=== PATIENT | male | born 1955 | race Caucasian/White ===

== ENCOUNTER 2017-11-26 09:18 | Outpatient (CLI) | payer MEDICAID ==
[~2017-11-26 09:18] MED LIST: GUAI-934 PO; IPRA3AMP IH; METH4TAB81 PO; PRED10TA PO
== END 2017-11-26 23:59 | disposition home or self-care (01) ==
LOC: RT 09:18
DX: J44.9 Chronic obstructive pulmonary disease, unspecified (principal)
CPT/HCPCS: 94618

== ENCOUNTER → 2018-07-03 | Outpatient (CLI) | payer MEDICARE, MEDICAID ==
[~2018-07-03] MED LIST changes: -IPRA3AMP IH; +IPRA3AMP31 IH
[2018-07-03 09:42] LABS: BASOPHILS % (AUTO) 0.8 % (0-1); EOSINOPHILS % (AUTO) 0.7 % (0-6); LYMPHOCYTES # (AUTO) 1.4 X10'3 (1.1-4.8); LYMPHOCYTES % (AUTO) 22.9 % (21-51); MEAN CORPUSCULAR HEMOGLOBIN 29.6 PG (27.0-31.0); MEAN CORPUSCULAR HGB CONC 33.3 % (33.0-36.5); MEAN CORPUSCULAR VOLUME 89.1 FL (78-98); MONOCYTES # (AUTO) 0.6 X10'3 (0-0.9); MONOCYTES % (AUTO) 10.5 % (2-12); NEUTROPHILS # (AUTO) 4.1 X10'3 (1.8-7.7); NEUTROPHILS % (AUTO) 65.1 % (42-75); PLATELET COUNT 215 X10'3 (140-440); RED BLOOD COUNT 5.05 X10'6 (4.70-6.10); RED CELL DISTRIBUTION WIDTH 12.4 % (11.5-14.5); WHITE BLOOD COUNT 6.1 X10'3 (4.5-11.0)
[2018-07-03 10:00] LABS: ALANINE AMINOTRANSFERASE 43 U/L (12-78); ALBUMIN/GLOBULIN RATIO 1.2 (1.1-1.5); ALKALINE PHOSPHATASE 118 IU/L (46-116); ANION GAP 11 (8-16); ASPARTATE AMINO TRANSFERASE 24 U/L (10-37); BILIRUBIN,TOTAL 0.4 MG/DL (0.1-1.0); BLOOD UREA NITROGEN 17 MG/DL (7-18); BUN/CREATININE RATIO 13.7 (5.4-32.0); CALCIUM 9.1 MG/DL (8.5-10.1); CHLORIDE 102 MMOL/L (99-107); CREATININE 1.24 MG/DL (0.60-1.10); GLUCOSE 105 MG/DL (70-104); SODIUM 139 MMOL/L (135-145); TOTAL PROTEIN 7.3 G/DL (6.4-8.2); eGFR 59 ML/MIN
[2018-07-03 10:13] LABS: PARTIAL THROMBOPLASTIN TIME 37 SECONDS (22-32)
== END | disposition home or self-care (01) ==
LOC: LAB 09:01
PROVIDERS: ATTEND Otolaryngology
DX: D69.1 Qualitative platelet defects (principal); J44.9 Chronic obstructive pulmonary disease, unspecified; Z87.891 Personal history of nicotine dependence
CPT/HCPCS: 36415; 80053; 85025; 85576; 85610; 85730

== ENCOUNTER 2020-12-05 08:46 | Day surgery (SDC) | payer MEDICARE, MEDICAID ==
[2020-11-29 15:06] LABS: BASOPHILS # (AUTO) 0.1 X10'3 (0-0.2); BASOPHILS % (AUTO) 0.9 % (0-1); EOSINOPHILS # (AUTO) 0.1 X10'3 (0-0.9); EOSINOPHILS % (AUTO) 1.2 % (0-6); LYMPHOCYTES # (AUTO) 1.5 X10'3 (1.1-4.8); LYMPHOCYTES % (AUTO) 24.5 % (21-51); MEAN CORPUSCULAR HEMOGLOBIN 30.8 PG (27.0-31.0); MEAN CORPUSCULAR HGB CONC 34.2 g/dL (33.0-36.5); MEAN PLATELET VOLUME 9.1 FL (7.4-10.4); MONOCYTES # (AUTO) 0.8 X10'3 (0-0.9); MONOCYTES % (AUTO) 13.5 % (2-12); NEUTROPHILS # (AUTO) 3.7 X10'3 (1.8-7.7); NEUTROPHILS % (AUTO) 59.9 % (42-75); PRE OP HEMATOCRIT 42.2 % (42.0-52.0); PRE OP HEMOGLOBIN 14.4 g/dL (14.0-17.9); PRE OP PLATELET COUNT 199 X10'3 (140-440); RED BLOOD COUNT 4.69 X10'6 (4.70-6.10); RED CELL DISTRIBUTION WIDTH 12.9 % (11.5-14.5)
[2020-11-29 15:18] LABS: PRE OP PROTIME 10.7 SECONDS (9.0-12.0)
[2020-11-29 15:22] LABS: ALBUMIN 3.9 G/DL (3.4-5.0); ALBUMIN/GLOBULIN RATIO 1.2 (1.1-1.5); ALKALINE PHOSPHATASE 119 IU/L (46-116); BLOOD UREA NITROGEN 20 MG/DL (7-18); BUN/CREATININE RATIO 17.2 (5.4-32.0); CALCIUM 9.3 MG/DL (8.5-10.1); CHLORIDE 103 MMOL/L (99-107); CREATININE 1.16 MG/DL (0.60-1.10); PRE OP ALT 52 U/L (30-65); PRE OP ANION GAP 8 (8-16); PRE OP AST 35 U/L (10-37); PRE OP BILIRUB, TOTAL 0.5 MG/DL (0.0-1.0); PRE OP GLUCOSE 109 MG/DL (70-104); PRE OP POTASSIUM 3.7 MMOL/L (3.4-5.1); PRE OP SODIUM 139 MMOL/L (135-145); TOTAL CARBON DIOXIDE 28.3 MMOL/L (24-32); TOTAL PROTEIN 7.1 G/DL (6.4-8.2); eGFR 63 ML/MIN
[~2020-12-05] VITALS: Ht 170.2 cm; Wt 93.0 kg
[2020-12-05] VITALS (11 sets, daily range): BP systolic 106–136; BP diastolic 60–88
[~2020-12-05 08:46] MED LIST changes: +ALBU8.5H8 INH; +FORMOTEROL FUM INH SCH; +GLYC10.7 INH; +GLYCOPYRROLATE INH SCH; -GUAI-934 PO; +HYDROcodone/acetaminophen 10/325mg tab PO PRN; +HYDROmorphone inj. 0.5 MG/0.5 ML DISP.SYRIN IV PRN; -IPRA3AMP31 IH; +MESSAGE TO NURSING PO ONE; -METH4TAB81 PO; -PRED10TA PO; +TRAM50TA2 PO; +acetaminophen 325mg tablet PO ONE; +acetaminophen 325mg tablet PO PRN; +albuterol 2.5 MG/3 ML nebule NEB ONE; +bisacodyl 10mg suppository rectal RC PRN; +ceFAZolin 2gm in dextrose, iso 50 ML IV ONE; +diphenhydrAMINE 25mg capsule PO PRN; +famotidine 20mg tablet PO ONE; +gabapentin 300mg capsule PO ONE; +magnesium hydroxide 30ml (MOM) UD suspension PO PRN; +metoclopramide 5 mg/ml inj IV ONE; +ondansetron/PF 4mg/2ml inj IV PRN; +oxyCODONE SR 10mg (sust. release) tab -2 tabs (20mg) PO ONE; +tranexamic acid inj. 1,000 MG in normal saline 100 ML IV ONE; +vancomycin 1,500 MG in NS 300ml IV soln IV ONE
[2020-12-05] MEDS: ringers solution, lacted 1,000 ML IV SCH ×2 (10:41→14:57)
[2020-12-05] MEDS ORDERED: epiNEPHrine 1 mg/ml inj ONE (11:11)
[2020-12-05] MEDS ORDERED: fentaNYL/PF 50MCG/1 ML 2ML syringe ONE (11:11)
[2020-12-05] MEDS ORDERED: ketorolac trometh. 30mg/ml inj. ONE (11:11)
[2020-12-05] MEDS ORDERED: ROPIVAcaine 0.5% (5mg/ml) 30ml vial ONE (11:12)
[2020-12-05] MEDS ORDERED: cloNIDine hcl/PF 100mcg/ml inj ONE (11:12)
[2020-12-05] MEDS ORDERED: hydrALAZINE 20mg/ml inj. IV PRN (11:25)
[2020-12-05] MEDS ORDERED: labetalol 20mg/4ml (5mg/ml) syringe IV PRN (11:25)
[2020-12-05] MEDS ORDERED: ringers solution, lacted 1,000 ML IV SCH (11:25)
[2020-12-05] MEDS ORDERED: fentaNYL/PF 50MCG/1 ML 2ML syringe IV PRN ×2 (11:25)
[2020-12-05] MEDS ORDERED: ondansetron/PF 4mg/2ml inj IV PRN (11:25)
[2020-12-05] MEDS ORDERED: morphine 2 MG/ML inj. syringe IV PRN (11:25)
[2020-12-05] MEDS ORDERED: morphine 4 MG/ML inj SYRINge IV PRN (11:25)
[2020-12-05] MEDS ORDERED: tranexamic acid 1gm/0.7% sal. 100 ML IV ONE (12:00)
[2020-12-05] MEDS ORDERED: MIDAZolam 1mg/ml 10ml vial ONE (12:17)
[2020-12-05] MEDS ORDERED: vancomycin 1,000mg inj ONE (12:28)
--- NOTE | 2020-12-05 13:22 | NUR ---
Received from OR via BED IN STABLE CONDITION , accompanied by Anesthesiologist and SUPERVISOR SHIPPING report given by Anesthesiolgist. KNEE IMMOBILIZER TO RIGHT LEG. LATOYA DRESSING IN PLACE. DERMATOME LEVEL L2. Addendum: 12/05/20 at 1348 by Shena Bernabe RN Amended: Links added.
--- NOTE | 2020-12-05 14:32 | NUR ---
DERMATOME LEVEL L4. Addendum: 12/05/20 at 1433 by Shena Bernabe RN Amended: Links added.
--- NOTE | 2020-12-05 14:40 | NUR ---
received report from leatha hassan from recovery
--- NOTE | 2020-12-05 14:42 | NUR ---
PATIENT TRANSFERRED TO ROOM IN STABLE CONDITION AFTER REPORT GIVEN TO RN TAKING OVER PATIENTS CARE. DERMATOME LEVEL L4. PATIENT TRANSPORTED VIA BED WITH RN AND TECH. Addendum: 12/05/20 at 1457 by Shena Bernabe RN Amended: Links added.
[2020-12-05] MEDS: potassium cl 20mEq in 1/2 NS 1,000 ML IV SCH ×3 (14:45→22:45)
[2020-12-05] MEDS: ascorbic acid 500mg tablet PO SCH ×2 (14:56→20:35)
[2020-12-05] MEDS: gabapentin 300mg capsule PO SCH ×3 (14:56→20:34)
[2020-12-05] MEDS: multivitamins, therapeutics tablet PO SCH (14:56)
[2020-12-05] MEDS: aspirin 325mg tablet PO SCH (14:57)
[2020-12-05] MEDS ORDERED: albuterol 2.5 MG/3 ML nebule NEB PRN (15:35)
[2020-12-05] MEDS ORDERED: FORMOTEROL FUM IH SCH (15:35)
[2020-12-05] MEDS ORDERED: GLYCOPYRROLATE IH SCH (15:35)
[2020-12-05] MEDS: ceFAZolin 2gm in dextrose, iso 50 ML IV SCH (16:17)
[2020-12-05] MEDS: HYDROcodone/acetaminophen 10/325mg tab PO PRN ×2 (18:02→22:25)
--- NOTE | 2020-12-05 18:41 | NUR ---
gave report to leatha chatman
--- NOTE | 2020-12-05 19:30 | NUR ---
ambulated [address] tolerated well.
[2020-12-05] MEDS: HYDROmorphone 1 mg/ml syringe IV PRN (20:33)
[2020-12-05] MEDS ORDERED: sennosides 8.6mg tablet PO SCH (21:00)
[2020-12-05] MEDS ORDERED: VANCOMYCIN 1,500MG inj. 1,500 MG in normal saline 500ml IV soln 300 ML IV SCH (23:00)
[2020-12-06] MEDS: ceFAZolin 2gm in dextrose, iso 50 ML IV SCH (00:35)
[2020-12-06] MEDS: HYDROmorphone 1 mg/ml syringe IV PRN (00:35)
--- NOTE | 2020-12-06 01:04 | NUR ---
ambulated [address] SBA. pain controlled with dilaudid. up to BR to void
[2020-12-06 01:19] VITALS: BP 115/72
[2020-12-06] MEDS: HYDROcodone/acetaminophen 10/325mg tab PO PRN (05:43)
[2020-12-06 06:19] VITALS: BP 114/81
--- NOTE | 2020-12-06 06:19 | NUR ---
Patient in room ORTHO 4015. I have received report from Juan BOLDEN and had the opportunity to ask questions and assume patient care.
[2020-12-06 06:25] LABS: BASOPHILS % (AUTO) 0.4 % (0-1); EOSINOPHILS # (AUTO) 0.1 X10'3 (0-0.9); EOSINOPHILS % (AUTO) 1.7 % (0-6); HEMATOCRIT 36.1 % (42.0-52.0); HEMOGLOBIN 12.5 g/dl (14.0-17.9); LYMPHOCYTES # (AUTO) 1.3 X10'3 (1.1-4.8); LYMPHOCYTES % (AUTO) 15.4 % (21-51); MEAN CORPUSCULAR HEMOGLOBIN 31.3 PG (27.0-31.0); MEAN CORPUSCULAR HGB CONC 34.7 g/dL (33.0-36.5); MEAN CORPUSCULAR VOLUME 90.2 FL (78-98); MEAN PLATELET VOLUME 8.8 FL (7.4-10.4); MONOCYTES # (AUTO) 1.3 X10'3 (0-0.9); MONOCYTES % (AUTO) 15.7 % (2-12); NEUTROPHILS # (AUTO) 5.4 X10'3 (1.8-7.7); NEUTROPHILS % (AUTO) 66.8 % (42-75); PLATELET COUNT 170 X10'3 (140-440); RED BLOOD COUNT 4.01 X10'6 (4.70-6.10); RED CELL DISTRIBUTION WIDTH 13.3 % (11.5-14.5); WHITE BLOOD COUNT 8.1 X10'3 (4.5-11.0)
--- NOTE | 2020-12-06 06:33 | NUR ---
reported to days. noted pt anticipates discharge today.
[2020-12-06 06:37] LABS: ANION GAP 7 (8-16); CHLORIDE 102 MMOL/L (99-107); POTASSIUM 4.1 MMOL/L (3.5-5.1); SODIUM 135 MMOL/L (135-145); TOTAL CARBON DIOXIDE 26.3 MMOL/L (24-32)
[2020-12-06] MEDS: potassium cl 20mEq in 1/2 NS 1,000 ML IV SCH (06:46)
[2020-12-06] MEDS: gabapentin 300mg capsule PO SCH ×2 (07:42→12:26)
[2020-12-06] MEDS: aspirin 325mg tablet PO SCH (07:42)
[2020-12-06] MEDS: ascorbic acid 500mg tablet PO SCH (07:42)
[2020-12-06] MEDS: multivitamins, therapeutics tablet PO SCH (07:42)
[2020-12-06 07:48] LABS: PLATELET ESTIMATE NORMAL; TOTAL CELLS COUNTED 100
[2020-12-06 10:46] VITALS: BP 123/73
[2020-12-06] MEDS ORDERED: HYDROcodone/acetaminophen 10/325mg tab PO ONE (11:35)
--- NOTE | 2020-12-06 14:12 | NUR ---
Patient discharged to home with , discharge instructions given to the both of them regarding complications, follow up, medications and how to manage rogelio dressing. Verbalized understanding of all of this. 20 gauge iv removed cannula intact no complications. Discharged via wheelchair to private vehicle in stable condition.
== END 2020-12-06 14:06 | disposition home or self-care (01) ==
LOC: ORTHO 4S 08:46 → PAS 08:46
PROVIDERS: ATTEND Orthopaedic Surgery
DX: M16.11 Unilateral primary osteoarthritis, right hip (principal); M25.551 Pain in right hip; J44.9 Chronic obstructive pulmonary disease, unspecified; Z87.891 Personal history of nicotine dependence
CPT/HCPCS: 27130; 36415; 72170; 80051; 80053; 82948; 85007; 85025; 85610; 85730; 86885; 86900; 86901; 86920; 87081; 97110; 97116; 97162; 97530; C1776; J0171; J0735; J1170; J1885; J2250; J2765; J3010; J3370; J7040; J7120; A7000; G0378; J2795; J3480

== ENCOUNTER 2022-04-16 01:50 | Outpatient (CLI) | payer MEDICARE, MEDICAID ==
[~2022-04-16 01:50] MED LIST changes: +ALBU8.5H17 INH; -ALBU8.5H8 INH; -FORMOTEROL FUM INH SCH; -GLYCOPYRROLATE INH SCH; -HYDROcodone/acetaminophen 10/325mg tab PO PRN; -HYDROmorphone inj. 0.5 MG/0.5 ML DISP.SYRIN IV PRN; -MESSAGE TO NURSING PO ONE; -TRAM50TA2 PO; -acetaminophen 325mg tablet PO ONE; -acetaminophen 325mg tablet PO PRN; -albuterol 2.5 MG/3 ML nebule NEB ONE; -bisacodyl 10mg suppository rectal RC PRN; -ceFAZolin 2gm in dextrose, iso 50 ML IV ONE; -diphenhydrAMINE 25mg capsule PO PRN; -famotidine 20mg tablet PO ONE; -gabapentin 300mg capsule PO ONE; -magnesium hydroxide 30ml (MOM) UD suspension PO PRN; -metoclopramide 5 mg/ml inj IV ONE; -ondansetron/PF 4mg/2ml inj IV PRN; -oxyCODONE SR 10mg (sust. release) tab -2 tabs (20mg) PO ONE; -tranexamic acid inj. 1,000 MG in normal saline 100 ML IV ONE; -vancomycin 1,500 MG in NS 300ml IV soln IV ONE
== END 2022-04-16 23:59 | disposition home or self-care (01) ==
LOC: PUL REHAB 01:50
PROVIDERS: ATTEND Internal Medicine Pulmonary Disease
DX: J44.9 Chronic obstructive pulmonary disease, unspecified (principal)
CPT/HCPCS: 94618

== ENCOUNTER 2024-03-01 13:56 | Outpatient (CLI) | payer MEDICARE, MEDICAID | END 2024-03-01 23:59 | disposition home or self-care (01) | LOC: CARD DIAG 13:56 | PROVIDERS: ATTEND Family Medicine | DX: I08.8 Other rheumatic multiple valve diseases (principal); J44.9 Chronic obstructive pulmonary disease, unspecified; R06.09 Other forms of dyspnea | CPT/HCPCS: 93306 ==